=== PATIENT | male | born 1965 | race Caucasian/White ===

== ENCOUNTER 2023-06-04 09:27 | Outpatient (AMB) | payer MEDICARE, MEDICAID, SELFPAY ==
--- NOTE | 2023-06-04 09:40 | HO.SPINEOV ---
Intake Intake Visit Reasons: back pain Intake Note: Mr. Ngo is here today c/o low back pain. MRI done @ [facility]/brought disc. Final Inspector Balance Wheel Required: No Assessment & Plan Assessment & Plan (1) Lumbar radiculopathy: Code(s): M54.16 - Radiculopathy, lumbar region Plan Dear Mary Beth, Thank you for referring Mr Ngo to our office today. He is a 58-year-old gentleman presents to the office today for evaluation of a left lumbar radiculopathy. He is a patient of Dr. Triplett and has undergone 3 back surgeries at his L4-5 level, but has been left with a chronic left leg pain now for many years. Subsequent surgeries have not yielded any relief. Apparently her office was discussing the possibility of fusion, but then called him back in said everything looked okay that he did not need any more surgery. He is very confused as to how he can still have this much pain despite every when telling him that the imaging looks okay. He tells me that his days are filled with pain and discomfort and that his functional levels are minimal compared to what he used to be able to do. He has had a loss where to turn next. PMH: History of neck surgery with anterior cervical fusion and as mentioned L4-5 surgery 3 times Social hx: He smokes 1 pack a day Medications: Oxycodone and trazodone Allergies: Multiple drug allergies he did not list Physical exam: He is able to stand up on his own, gait is normal, strength is normal Imaging review: Lumbar MRI done at [facility] in May 2023 shows evidence of normal alignment of the lumbar spine, mild degeneration at L4-5 but no evidence of nerve compression Impression: 58-year-old gentleman, history of 3 previous back surgeries at L4-5, 2 of which were on the left side, who has been left with a persistent radiculopathy going down his left leg at times into his foot. His original issue with his back sounds like a disc herniation and he tried to wait that out for year but ultimately ended up with surgery. I suspect there was damage to the nerve at the time of the disc herniation and unfortunately what he is dealing with is a chronic radiculopathy due to a defect in the nerve. His MRI shows no evidence of compression. I agree with Dr. Triplett that there is no role for any further surgery. I think he would be a great candidate for spinal cord stimulator. I will send him to 1 of my colleagues here at [facility] for evaluation of possible spinal cord stimulator implant. Thank you for allowing us to care for your patient. The total time spent with this visit with this patient was 45 minutes reviewing history, physical exam, lumbar imaging review, and implementation of treatment plan or further diagnostic testing Tj Deluca MD,PhD [facility] Orders: Referrals Physiatry Referral M54.16 - Radiculopathy, lumbar region Coding Level of Care Code New Pt Level 4 (46031) Diagnoses Lumbar radiculopathy M54.16
== END 2023-06-04 10:48 | disposition home or self-care (01) ==
PROVIDERS: PCP Family Medicine; Referring Provider Family Medicine; Visit Provider Physician Assistant
DX: M54.16 Radiculopathy, lumbar region (principal)
CPT/HCPCS: 99204

== ENCOUNTER → 2023-06-04 09:27 | Outpatient (BNVA) | payer MEDICARE, MEDICAID, SELFPAY | PROVIDERS: PCP Family Medicine; Referring Provider Family Medicine; Visit Provider Physician Assistant | DX: M54.16 Radiculopathy, lumbar region (principal) | CPT/HCPCS: 99202 ==